=== PATIENT | female | born 1965 | race Hispanic/Latino ===

== ENCOUNTER 2023-02-20 01:40 | Emergency (ER) | payer OTHER, SELFPAY ==
[2023-02-20] MEDS ORDERED: Ibuprofen 200 MG TAB ONE (02:07)
== END 2023-02-20 02:17 | disposition home or self-care (01) ==
LOC: CSHERS 01:40
DX: S83.422A Sprain of lateral collateral ligament of left knee, initial encounter (principal); W01.0XXA Fall on same level from slipping, tripping and stumbling without subsequent striking against object, initial encounter; Y92.009 Unspecified place in unspecified non-institutional (private) residence as the place of occurrence of the external cause
CPT/HCPCS: 99283

== ENCOUNTER 2023-08-26 23:11 | Inpatient (IN) | payer BC, OTHER, SELFPAY ==
[2023-08-26] MEDS ORDERED: VANCOMYCIN 2 GRAM/400 ML BAG 2 GM in Premix 1 BAG IVPB ONE (23:45)
[2023-08-26] MEDS ORDERED: cefTRIAXone (ROCEPHIN) 2 GM VIAL ONE (23:57)
[2023-08-26 23:59] LABS: #Eosinphils 0.1 10x3/uL (0.0-0.5); #Monocytes 0.4 10x3/uL (0.0-1.1); #Neutrophils 8.7 10x3/uL (1.5-8.4); %Basophils 0.2 % (0.0-2.0); %Eosinophils 0.7 % (0.0-6.0); %Lymphocytes 10.5 % (18.0-47.0); %Monocytes 3.8 % (0.0-10.0); %Neutrophils 84.4 % (40.0-75.0); Hematocrit 36.2 % (34.9-44.5); Hemoglobin 12.3 g/dL (12.0-15.5); Mean Corpuscular Hemoglobin 27.5 pg (27.0-33.0); Mean Platelet Volume 8.8 fl (7.4-10.4); Platelet Count 276 10x3/uL (150-450); RBC Distribution Width 13.9 % (11.5-14.5); Red Blood Cell (RBC) Count 4.47 10x6/uL (3.90-5.03); White Blood Cell (WBC) Count 10.3 10x3/uL (3.5-10.5)
[2023-08-27 00:07] LABS: ALT (SGPT) 19 U/L (8-55); AST (SGOT) 13 U/L (5-34); Albumin 3.9 g/dL (3.5-5.0); Alkaline Phosphatase 125 U/L (40-110); Anion Gap 18 mmol/L (10-20); BUN (Urea Nitrogen) 11 mg/dL (9.8-20.1); Bilirubin, Total 0.7 mg/dL (0.2-1.2); Calc. Creatinine Clearance 0 mL/min (70-130); Calcium 9.8 mg/dL (7.8-10.44); Carbon Dioxide 17 mmol/L (22-29); Chloride 101 mmol/L (98-107); Estimated GFR 78; Globulin 4.1 g/dL (2.4-3.5); Potassium 3.5 mmol/L (3.5-5.1); Sodium 132 mmol/L (136-145)
[2023-08-27 00:09] LABS: Glucose 429 mg/dL (70-105)
[2023-08-27] MEDS ORDERED: Glucagon 1 MG/ML KIT IM PRN (02:18)
[2023-08-27] MEDS ORDERED: Ondansetron PF 4 MG/2 ML Vial IVP PRN (02:18)
[2023-08-27] MEDS ORDERED: Acetaminophen 325 MG TAB PO PRN (02:18)
[2023-08-27] MEDS ORDERED: Guaifenesin DM 100-10/5 ML UDCUP PO PRN (02:18)
[2023-08-27] MEDS ORDERED: Senokot S 8.6-50 MG TAB PO PRN (02:18)
[2023-08-27] MEDS ORDERED: Dextrose 5% in Water 1,000 ML IV PRN (02:18)
[2023-08-27] MEDS ORDERED: Calcium Carbonate 500 MG ChewTAB PO PRN (02:18)
[2023-08-27] MEDS ORDERED: Dextrose 50% Abboject 50 ML SYRINGE SLOW IVP PRN (02:18)
[2023-08-27] MEDS ORDERED: [UNRECOGNIZED DRUG - REMARK] IVPB PRN (02:27)
[2023-08-27] MEDS ORDERED: Lactated Ringer's 1,000 ML IV SCH (02:30)
[2023-08-27 03:41] VITALS: BMI 40.7
[2023-08-27] MEDS: HumaLOG 300 UNITS/3 ML VIAL SC PRN ×6 (04:04→20:57)
[2023-08-27 04:59] LABS: CRP (Inflammatory) 11.02 mg/dL (= or < 0.5); Cardiac Risk 2.8 (Less than 4.5)
[2023-08-27] MEDS: Cefepime 2 GM in Sodium Chloride 0.9% 100 ML IVPB SCH ×2 (06:09→12:48)
[2023-08-27] MEDS: HYDROcodone/Acetaminophen 5/325 mg Tablet PO PRN ×3 (08:24→21:03)
[2023-08-27] MEDS: Enoxaparin 40 MG (0.4 mL) SYRINGE SC SCH (08:25)
[2023-08-27] MEDS: glipiZIDE 5 MG TAB PO SCH ×2 (08:25→17:13)
[2023-08-27 12:26] LABS: Hemoglobin A1c 11.6 % (4.0-6.0)
[2023-08-27] MEDS: VANCOMYCIN 1.25 GM/250 ML BAG 1.25 GM in Premix 1 BAG IVPB SCH (14:10)
[2023-08-27] MEDS: Lantus 1000 UNITS/10 ML VIAL SC SCH (20:51)
[2023-08-27] MEDS: Sodium Chloride 0.9% 1,000 ML IV SCH (20:52)
[2023-08-28] MEDS: VANCOMYCIN 1.25 GM/250 ML BAG 1.25 GM in Premix 1 BAG IVPB SCH ×2 (01:31→17:35)
[2023-08-28 03:56] LABS: #Eosinphils 0.1 10x3/uL (0.0-0.5); #Monocytes 0.3 10x3/uL (0.0-1.1); #Neutrophils 5.1 10x3/uL (1.5-8.4); %Basophils 0.1 % (0.0-2.0); %Eosinophils 1.7 % (0.0-6.0); %Lymphocytes 17.9 % (18.0-47.0); %Monocytes 4.7 % (0.0-10.0); Hematocrit 31.5 % (34.9-44.5); Hemoglobin 10.5 g/dL (12.0-15.5); Mean Corpuscular HGB CONC 33.3 g/dL (32.0-36.0); Mean Corpuscular Hemoglobin 27.6 pg (27.0-33.0); Mean Corpuscular Volume 82.9 fl (81.6-98.3); Mean Platelet Volume 8.8 fl (7.4-10.4); Platelet Count 268 10x3/uL (150-450); RBC Distribution Width 13.9 % (11.5-14.5); White Blood Cell (WBC) Count 6.9 10x3/uL (3.5-10.5)
[2023-08-28 04:03] LABS: Anion Gap 13 mmol/L (10-20); BUN (Urea Nitrogen) 8 mg/dL (9.8-20.1); Calc. Creatinine Clearance 184 mL/min (70-130); Calcium 8.9 mg/dL (7.8-10.44); Carbon Dioxide 23 mmol/L (22-29); Chloride 104 mmol/L (98-107); Estimated GFR 105; Glucose 226 mg/dL (70-105); Potassium 3.6 mmol/L (3.5-5.1); Sodium 136 mmol/L (136-145)
[2023-08-28] MEDS: Cefepime 2 GM in Sodium Chloride 0.9% 100 ML IVPB SCH ×2 (05:47→12:31)
[2023-08-28] MEDS: HumaLOG 300 UNITS/3 ML VIAL SC PRN ×4 (05:54→20:46)
[2023-08-28] MEDS: Enoxaparin 40 MG (0.4 mL) SYRINGE SC SCH (08:27)
[2023-08-28] MEDS: metFORMIN 500 MG TAB PO SCH ×2 (08:27→17:03)
[2023-08-28] MEDS: glipiZIDE 5 MG TAB PO SCH ×2 (08:27→17:03)
[2023-08-28] MEDS: HYDROcodone/Acetaminophen 5/325 mg Tablet PO PRN ×3 (08:36→20:43)
[2023-08-28] MEDS: Sodium Chloride 0.9% 1,000 ML IV SCH (08:37)
[2023-08-28 12:54] LABS: Vancomycin, Trough 5.3 ug/mL
[2023-08-28] MEDS ORDERED: Lidocaine 1% w/Epinephrine 1:200K 30 ML VIAL FS SCH (13:00)
[2023-08-28] MEDS: VANCOMYCIN 1.75 GM in Sodium Chloride 0.9% 500 ML IVPB SCH (17:30)
[2023-08-28] MEDS: Lantus 1000 UNITS/10 ML VIAL SC SCH (20:44)
[2023-08-29] MEDS: HYDROcodone/Acetaminophen 5/325 mg Tablet PO PRN ×4 (00:25→21:24)
[2023-08-29] MEDS: VANCOMYCIN 1.75 GM/350 ML BAG 1.75 GM in Premix 1 BAG IVPB SCH ×2 (02:21→11:10)
[2023-08-29] MEDS: Cefepime 2 GM in Sodium Chloride 0.9% 100 ML IVPB SCH ×2 (05:46→13:57)
[2023-08-29] MEDS: HumaLOG 300 UNITS/3 ML VIAL SC PRN ×3 (05:53→21:29)
[2023-08-29] MEDS: Sodium Chloride 0.9% 1,000 ML IV SCH ×2 (07:53→16:24)
[2023-08-29] MEDS: VANCOMYCIN 1.75 GM in Sodium Chloride 0.9% 500 ML IVPB SCH (07:54)
[2023-08-29] MEDS: glipiZIDE 5 MG TAB PO SCH ×2 (09:00→17:58)
[2023-08-29] MEDS: metFORMIN 500 MG TAB PO SCH ×2 (09:00→17:58)
[2023-08-29] MEDS: Enoxaparin 40 MG (0.4 mL) SYRINGE SC SCH (09:00)
[2023-08-29 17:28] LABS: Vancomycin, Trough 19.4 ug/mL
[2023-08-29] MEDS ORDERED: VANCOMYCIN 1.25 GM/250 ML BAG 1.25 GM in Premix 1 BAG IVPB SCH (18:00)
[2023-08-29] MEDS: Lantus 1000 UNITS/10 ML VIAL SC SCH (21:27)
[2023-08-29] MEDS: VANCOMYCIN 1.25 GM/250 ML BAG 1.25 GM in Premix 1 BAG IVPB SCH (21:27)
[2023-08-30] MEDS: Sodium Chloride 0.9% 1,000 ML IV SCH ×2 (04:12→16:15)
[2023-08-30] MEDS: HYDROcodone/Acetaminophen 5/325 mg Tablet PO PRN ×2 (04:12→16:12)
[2023-08-30] MEDS: Cefepime 2 GM in Sodium Chloride 0.9% 100 ML IVPB SCH ×2 (04:18→18:25)
[2023-08-30] MEDS: VANCOMYCIN 1.25 GM/250 ML BAG 1.25 GM in Premix 1 BAG IVPB SCH (04:28)
[2023-08-30] MEDS: HumaLOG 300 UNITS/3 ML VIAL SC PRN ×2 (05:34→20:34)
[2023-08-30] MEDS: Enoxaparin 40 MG (0.4 mL) SYRINGE SC SCH (08:25)
[2023-08-30] MEDS: metFORMIN 500 MG TAB PO SCH ×2 (08:25→18:24)
[2023-08-30] MEDS: glipiZIDE 5 MG TAB PO SCH ×2 (08:25→16:12)
[2023-08-30] MEDS: Saccharomyces boulardii 250 MG CAP PO SCH (20:34)
[2023-08-31] MEDS: Sodium Chloride 0.9% 1,000 ML IV SCH ×2 (00:59→15:53)
[2023-08-31] MEDS: Cefepime 2 GM in Sodium Chloride 0.9% 100 ML IVPB SCH (04:37)
[2023-08-31] MEDS: HYDROcodone/Acetaminophen 5/325 mg Tablet PO PRN (05:37)
[2023-08-31] MEDS: HumaLOG 300 UNITS/3 ML VIAL SC PRN (05:38)
[2023-08-31] MEDS: Enoxaparin 40 MG (0.4 mL) SYRINGE SC SCH (09:03)
[2023-08-31] MEDS: glipiZIDE 5 MG TAB PO SCH (09:03)
[2023-08-31] MEDS: metFORMIN 500 MG TAB PO SCH (09:03)
[2023-08-31] MEDS: Saccharomyces boulardii 250 MG CAP PO SCH (09:03)
[2023-08-31 12:24] VITALS: BP 136/68; TEMP 97.5
== END 2023-08-31 17:40 | disposition home or self-care (01) | DRG 603 ==
LOC: CSHERS 23:11 → CSHTELE 08-27 02:20 → OBSVTOIN 08-27 02:21
PROVIDERS: ADMIT Student in an Organized Health Care Education/Training Program; ATTEND Internal Medicine
PROC: 0J9P0ZZ Drainage of Left Lower Leg Subcutaneous Tissue and Fascia, Open Approach (ICD-10-PCS; principal; 2023-08-28)
DX: L02.416 Cutaneous abscess of left lower limb (principal); E87.1 Hypo-osmolality and hyponatremia; L03.116 Cellulitis of left lower limb; E78.5 Hyperlipidemia, unspecified; E11.65 Type 2 diabetes mellitus with hyperglycemia; Z98.51 Tubal ligation status; Z90.49 Acquired absence of other specified parts of digestive tract
CPT/HCPCS: 36415; 36416; 80048; 80053; 80061; 80202; 82550; 82565; 83036; 83605; 84520; 85025; 86140; 87040; 87070; 87077; 87081; 87205; 87324; 87449; 93005; 96374; 96375; J0692; J0696; J1650; J1815; J3370; J3490; J7030; J7050; J7120

== ENCOUNTER 2023-09-16 14:38 | Emergency (ER) | payer OTHER ==
[2023-09-16 16:29] LABS: #Eosinphils 0.2 10x3/uL (0.0-0.5); #Monocytes 0.2 10x3/uL (0.0-1.1); #Neutrophils 4.1 10x3/uL (1.5-8.4); %Basophils 0.2 % (0.0-2.0); %Eosinophils 3.2 % (0.0-6.0); %Lymphocytes 23.9 % (18.0-47.0); %Monocytes 3.8 % (0.0-10.0); %Neutrophils 68.6 % (40.0-75.0); Hematocrit 34.8 % (34.9-44.5); Hemoglobin 11.5 g/dL (12.0-15.5); Mean Corpuscular Hemoglobin 27.4 pg (27.0-33.0); Mean Corpuscular Volume 82.9 fl (81.6-98.3); Mean Platelet Volume 9.1 fl (7.4-10.4); Platelet Count 217 10x3/uL (150-450); RBC Distribution Width 14.6 % (11.5-14.5)
[2023-09-16 16:43] LABS: ALT (SGPT) 26 U/L (8-55); AST (SGOT) 40 U/L (5-34); Albumin 4.4 g/dL (3.5-5.0); Alkaline Phosphatase 76 U/L (40-110); Anion Gap 14 mmol/L (10-20); BUN (Urea Nitrogen) 15 mg/dL (9.8-20.1); Bilirubin, Total 0.5 mg/dL (0.2-1.2); Calc. Creatinine Clearance 0 mL/min (70-130); Calcium 9.4 mg/dL (7.8-10.44); Carbon Dioxide 24 mmol/L (22-29); Chloride 105 mmol/L (98-107); Estimated GFR 101; Globulin 3.4 g/dL (2.4-3.5); Glucose 76 mg/dL (70-105); Potassium 4.3 mmol/L (3.5-5.1); Protein, Total 7.8 g/dL (6.0-8.3); Sodium 139 mmol/L (136-145)
== END 2023-09-16 17:07 | disposition home or self-care (01) ==
LOC: CSHERS 14:38
DX: S81.802A Unspecified open wound, left lower leg, initial encounter (principal); E11.9 Type 2 diabetes mellitus without complications; X58.XXXA Exposure to other specified factors, initial encounter
CPT/HCPCS: 80053; 85025; 86140; 99284